=== PATIENT | female | born 1940 | race Two or more races ===

== ENCOUNTER 2017-11-29 09:28 | Outpatient (CLI) | payer OTHER | END 2017-11-29 09:39 | disposition home or self-care (01) | LOC: SONOGRAMA 09:28 | DX: M75.101 Unspecified rotator cuff tear or rupture of right shoulder, not specified as traumatic (principal) ==

== ENCOUNTER 2021-05-04 07:26 | Outpatient (CLI) | payer OTHER | END 2021-05-04 07:35 | disposition home or self-care (01) | LOC: RX STUDY 07:26 | PROVIDERS: ATTEND Otolaryngology | DX: R13.19 Other dysphagia (principal) ==